=== PATIENT | female | born 1960 | race Caucasian/White ===

== ENCOUNTER → 2017-03-15 | Outpatient (CLI) | payer OTHER ==
[~2017-03-15] MED LIST: AMBIEN5 MG PO; ANTIOXIDANT SO1 EACH PO; CLEOCIN150 MG PO; CYMBALTA30 MG PO; DILAUDID 2MG(HYD2 MG PO; FLONASE 50 MCG/16 GM NOSE; LEVOTHROID (SY50 MCG PO; MEVACOR20 MG PO; MULTI VITAMIN1 EACH PO; NAPROSYN250 MG PO; NEURONTIN100 MG PO; PROTONIX20 MG PO; ZYRTEC10 M3 PO
== END | disposition disaster alternative care site (69) ==
LOC: GBCOE 08:44
DX: Z12.31 Encounter for screening mammogram for malignant neoplasm of breast (principal)
CPT/HCPCS: G0202

== ENCOUNTER 2017-04-14 09:24 | Emergency (ER) | payer OTHER ==
--- NOTE | ~2017-04-14 | ER ---
PATIENT'S NAME: [facility] AGE: 56 Y [address] ROOM: [place] [address] LOCATION: [facility] ADMIT DATE: 04/14/2017 ER/Outpatient Report DISCHARGE DATE: 04/14/2017 FAMILY PHYSICIAN: Maday Hernández MD ATTENDING PHYSICIAN: Alondra Cervantes Time of Arrival: 0924 hours. Time of Evaluation: 0928 hours. IDENTIFICATION: A 56-year-old female. CHIEF COMPLAINT: Allergic reaction. 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 She went home and used her Symbicort inhaler, used her Flonase, and she was feeling a little bit better but did feel worried that she might be a little bit short of breath and felt just a little bit dizzy like that she could "pass out." She has no rash, no itching. No other problems or concerns. She has had some postnasal drainage with allergy symptoms. ALLERGIES: TO MORPHINE, TETANUS, SHELLFISH, AND LATEX. CURRENT MEDICATIONS: 1. Zyrtec. 2. Flonase. 3. Symbicort. 4. Cymbalta. 5. Ambien. 6. Pantoprazole. 7. Lovastatin. 8. Xyzal. 9. Vitamin B. 10. Multivitamin. 11. Naprosyn. 12. Synthroid. MEDICAL PROBLEMS: Hyperlipidemia, gastroesophageal reflux disease, depression, hypothyroidism. SOCIAL HISTORY: PATIENT'S NAME: [facility] AGE: 56 Y [address] ROOM: [place] [address] LOCATION: [facility] ADMIT DATE: 04/14/2017 ER/Outpatient Report DISCHARGE DATE: 04/14/2017 FAMILY PHYSICIAN: Maday Hernández MD ATTENDING PHYSICIAN: Alondra Cervantes The patient lives here in [place]. She works at [employer]. She is . Tobacco use, denies. Alcohol use, occasional. Drug use, denies. FAMILY HISTORY: No pertinent family history identified. REVIEW OF SYSTEMS: All systems reviewed and negative other than what is noted in the HPI. PHYSICAL EXAMINATION: VITAL SIGNS: Weight 81.8 kg, blood pressure 153/81, pulse 86, respirations 16, temperature 98.1, sats 95% on room air. GENERAL: A 56-year-old female, in no acute distress. HEENT: Head: Normocephalic, atraumatic. Ears: TMs translucent both ears. Eyes: Pupils equal and reactive to light and accommodation. Extraocular movements intact. Nose: Mucosa pink. No lesions or drainage. Mouth: No lesions. Pharynx benign. NECK: Supple. No lymphadenopathy. LUNGS: Clear to auscultation. Breath sounds are equal. No rhonchi, wheezes, or rales. HEART: Regular rate and rhythm. No murmur, rub, or gallop. ABDOMEN: Bowel sounds present. Soft, nondistended, nontender. SKIN: [place], warm, and dry. No lesions or rashes noted. NEURO: The patient is alert and oriented x4. Cranial nerves 2 through 12 grossly intact. Motor strength 5/5 throughout. Sensation is intact to light touch. IMPRESSION: Allergic reaction. PLAN: An IV was initiated. The patient was given Solu-Medrol 125 mg IV and Benadryl 25 mg IV. Her symptoms improved. She was observed from 0924 hours to 1034 hours without any symptoms. She will be discharged home. Allergic reaction handout. Benadryl 25 to 50 mg every 4 to 6 hours as needed for itching or rash. Albuterol as needed for shortness of breath. Return immediately if any respiratory distress. Follow up with Dr. Hernández as needed. The patient and her understand and agree, and I did give her a note to remain off work tonight. The patient understands and agrees, and all questions have been answered. ALONDRA CERVANTES MD PATIENT'S NAME: [facility] AGE: 56 Y [address] ROOM: [place], [place] [address] LOCATION: ED ADMIT DATE: 04/14/2017 ER/Outpatient Report DISCHARGE DATE: 04/14/2017 FAMILY PHYSICIAN: Maday Hernández MD ATTENDING PHYSICIAN: Alondra Cervantes CAR/modl /[id number] d: 04/14/17 2319 t: 04/22/17 1924, OUTPATIENT REPORT
== END 2017-04-14 10:35 | disposition disaster alternative care site (69) ==
LOC: GMED 09:24
DX: T78.40XA Allergy, unspecified, initial encounter (principal); E78.5 Hyperlipidemia, unspecified; K21.9 Gastro-esophageal reflux disease without esophagitis; E03.9 Hypothyroidism, unspecified; F32.9 Major depressive disorder, single episode, unspecified; Z88.8 Allergy status to other drugs, medicaments and biological substances; Z88.2 Allergy status to sulfonamides; Z91.040 Latex allergy status; Z91.013 Allergy to seafood; Z79.899 Other long term (current) drug therapy
CPT/HCPCS: J1200; J2930